=== PATIENT | female | born 1965 | race Two or more races ===

== ENCOUNTER 2018-06-20 15:37 | Emergency (ER) | payer OTHER ==
[~2018-06-20] VITALS: Ht 162.6 cm; Wt 68.0 kg
[2018-06-20 15:53] VITALS: BP 163/96
== END 2018-06-20 16:36 | disposition home or self-care (01) ==
LOC: ER 15:47
DX: E03.9 Hypothyroidism, unspecified (principal); F17.200 Nicotine dependence, unspecified, uncomplicated; F12.10 Cannabis abuse, uncomplicated; Z76.0 Encounter for issue of repeat prescription
CPT/HCPCS: Z7502

== ENCOUNTER 2018-07-25 10:25 | Emergency (ER) | payer OTHER ==
[~2018-07-25] VITALS: Ht 162.6 cm; Wt 65.8 kg
[2018-07-25 10:36] VITALS: BP 165/78
--- NOTE | 2018-07-25 11:10 | NUR ---
Patient discharged to home in stable condition. Written and verbal after care instructions given. Patient verbalizes understanding of instruction.
== END 2018-07-25 11:10 | disposition home or self-care (01) ==
LOC: ER 10:25
DX: E03.9 Hypothyroidism, unspecified (principal); F12.90 Cannabis use, unspecified, uncomplicated
CPT/HCPCS: 99283; A4606